=== PATIENT | female | born 1985 | race Caucasian/White ===

== ENCOUNTER 2018-12-20 21:04 | Emergency (ER) | payer BC ==
[~2018-12-20] VITALS: Ht 167.6 cm; Wt 63.6 kg
[2018-12-20 21:05] VITALS: BP 121/88
[2018-12-20 21:30] LABS: URINE HCG NEGATIVE (NEG)
[2018-12-20 21:36] LABS: CLARITY,URINE TURBID (Clear)
[2018-12-20 21:37] LABS: UA COLLECTION TYPE CLN CATCH MIDSTREAM
[2018-12-20 21:40] LABS: COLOR,URINE RED (Yellow)
[2018-12-20 21:46] LABS: BACTERIA,URINE 1+ /HPF (Neg); RBC,URINE TNTC /HPF (0-2); SQUAMOUS EPITHELIAL CELL,UR FEW /LPF (FEW)
[2018-12-20] MEDS ORDERED: CIP750T PO (21:53)
== END 2018-12-20 21:59 | disposition home or self-care (01) ==
LOC: ER 21:05
DX: N39.0 Urinary tract infection, site not specified (principal); R31.9 Hematuria, unspecified; Z88.0 Allergy status to penicillin; Z88.1 Allergy status to other antibiotic agents
CPT/HCPCS: 81001; 81025; 87077; 87088; 87186; 99283